=== PATIENT | female | born 1935 | race Caucasian/White ===

== ENCOUNTER 2020-08-01 10:57 | Day surgery (SDC) | payer MEDICARE ==
[2020-08-01] MEDS ORDERED: Acetaminophen 500 MG TAB PO SCH (11:15)
[2020-08-01] MEDS ORDERED: diphenhydrAMINE 50 MG/ML VIAL IVP SCH (11:15)
[2020-08-01] MEDS ORDERED: Acetaminophen 500 MG TAB ONE (11:31)
[2020-08-01] MEDS ORDERED: diphenhydrAMINE 50 MG/ML VIAL ONE (11:32)
== END 2020-08-01 13:50 | disposition home or self-care (01) ==
LOC: CSHSDC/OP 10:57
PROVIDERS: ATTEND Specialist
DX: Z23 Encounter for immunization (principal); U07.1 COVID-19
CPT/HCPCS: M0243; Q0243; J1200; J7050

== ENCOUNTER 2021-02-24 16:46 | Emergency (ER) | payer OTHER, MEDICARE | END 2021-02-24 20:10 | LOC: CSHERS 16:46 | DX: S00.83XA Contusion of other part of head, initial encounter (principal); S80.02XA Contusion of left knee, initial encounter; I48.91 Unspecified atrial fibrillation; W01.0XXA Fall on same level from slipping, tripping and stumbling without subsequent striking against object, initial encounter | CPT/HCPCS: 70450; 70486; 72125 ==

== ENCOUNTER 2021-05-22 14:04 | Observation (INO) | payer MEDICARE ==
[2021-05-22 17:18] LABS: ALT (SGPT) 16 U/L (8-55); AST (SGOT) 21 U/L (5-34); Albumin 3.7 g/dL (3.4-4.8); Alkaline Phosphatase 74 U/L (40-110); Anion Gap 13 mmol/L (10-20); BUN (Urea Nitrogen) 32 mg/dL (9.8-20.1); Bilirubin, Total 0.4 mg/dL (0.2-1.2); Calc. Creatinine Clearance 0 mL/min (70-130); Calcium 9.8 mg/dL (7.8-10.44); Carbon Dioxide 21 mmol/L (23-31); Chloride 106 mmol/L (98-107); Globulin 2.7 g/dL (2.4-3.5); Glucose 198 mg/dL (83-110); Potassium 4.4 mmol/L (3.5-5.1); Protein, Total 6.4 g/dL (5.8-8.1); Sodium 136 mmol/L (136-145)
[2021-05-22 17:21] LABS: #Eosinphils 0.2 10x3/uL (0.0-0.5); #Monocytes 0.6 10x3/uL (0.0-1.1); %Basophils 0.4 % (0.0-2.0); Hemoglobin 10.9 g/dL (12.0-15.5); Mean Corpuscular HGB CONC 32.2 g/dL (32.0-36.0); Mean Corpuscular Hemoglobin 31.3 pg (27.0-33.0); Mean Corpuscular Volume 97.4 fl (81.6-98.3); Mean Platelet Volume 10.3 fl (7.4-10.4); Platelet Count 370 10x3/uL (150-450); RBC Distribution Width 13.4 % (11.5-14.5); Red Blood Cell (RBC) Count 3.48 10x6/uL (3.90-5.03)
[2021-05-22 18:12] LABS: Bilirubin Neg (Negative); Blood, Urine 250 (Negative); Clarity Cloudy (Clear); Glucose, Urine (Dipstick) Normal (Negative); Ketone, Urine Negative (Negative); Leukocyte 500 (Negative); Nitrite Negative (Negative); Protein, Urine (Dipstick) 500 mg/dl (Neg-Trace); Specific Gravity, Urine 1.015 (1.002-1.036); Urobilinogen Normal mg/dL (Less than 2)
[2021-05-22 18:23] LABS: WBC/HPF Greater than 50 HPF (0-3)
[2021-05-22 18:24] LABS: Bacteria/HPF 2+ HPF (None Seen); Squamous Epithelial 0-3 HPF (0-3)
[2021-05-22] MEDS ORDERED: Ondansetron PF 4 MG/2 ML Vial ONE (19:42)
[2021-05-22] MEDS ORDERED: cefTRIAXone\\ROCEPHIN 2 GM VIAL ONE (19:42)
[2021-05-22 19:44] LABS: SARS-CoV-2 NAA Rapid Test Not Detected (NotDetected)
[2021-05-22] MEDS ORDERED: Ondansetron PF 4 MG/2 ML Vial IVP PRN (21:51)
[2021-05-22] MEDS ORDERED: Morphine 4 MG/ML VIAL ONE ×2 (22:08)
[2021-05-23 00:17] VITALS: BMI 27.4
[2021-05-23] MEDS: Sodium Chloride 0.9% 1,000 ML IV SCH ×2 (00:18→18:40)
[2021-05-23] MEDS ORDERED: FLU VACC QS2021-22(65YR UP)/PF 240 MCG/0.7 ML SYRINGE IM ONE (01:00)
[2021-05-23] MEDS ORDERED: Bisacodyl 10 MG SUPP PR SCH (04:15)
[2021-05-23] MEDS: Morphine 4 MG/ML VIAL SLOW IVP PRN ×7 (04:34→23:52)
[2021-05-23] MEDS ORDERED: Bisacodyl 10 MG SUPP PR PRN (13:08)
[2021-05-23] MEDS ORDERED: cefTRIAXone\\ROCEPHIN 1 GM in Sodium Chloride 0.9% 100 ML IVPB SCH (20:00)
[2021-05-24] MEDS: Morphine 4 MG/ML VIAL SLOW IVP PRN (05:26)
[2021-05-24 08:32] VITALS: BP 85/45; TEMP 97.6
== END 2021-05-24 10:16 | disposition expired ==
LOC: CSHERS 14:04 → CSHERHOLD 17:10 → UNDOADMIN 17:10 → CSHTELE 05-23 00:13
PROVIDERS: ADMIT Family Medicine; ATTEND Nurse Practitioner Family
DX: S00.93XA Contusion of unspecified part of head, initial encounter (principal); F03.90 Unspecified dementia, unspecified severity, without behavioral disturbance, psychotic disturbance, mood disturbance, and anxiety; I48.0 Paroxysmal atrial fibrillation; I10 Essential (primary) hypertension; E03.9 Hypothyroidism, unspecified; E11.9 Type 2 diabetes mellitus without complications; W19.XXXA Unspecified fall, initial encounter; Z79.01 Long term (current) use of anticoagulants; N39.0 Urinary tract infection, site not specified; Z20.822 Contact with and (suspected) exposure to COVID-19
CPT/HCPCS: 51701 ×2; 70450; 71045; 80053; 82962; 83880; 84484; 85014; 85018; 85025; 87077; 87086; 87186; 93005; 96365; 96372; 96374; 96375; 96376; 99285; G0378 ×4; U0002; 36416; 51798; 81003; 81015; J0696; J2270; J2405; J3490; J7050